=== PATIENT | male | born 1990 | race Caucasian/White ===

== ENCOUNTER 2024-02-01 05:15 | Emergency (ER) | payer MEDICAID ==
[~2024-02-01] VITALS: Ht 175.3 cm; Wt 74.0 kg
[~2024-02-01 05:15] MED LIST: TOPUD MT
[2024-02-01 05:20] VITALS: O2SAT 100
[2024-02-01] MEDS: LORAZEPAM 1MG TABLET PO ONE (05:50)
[2024-02-01] MEDS: SODIUM CHLORIDE 0.9% 1,000 ML IV ONE (05:54)
[2024-02-01 06:04] LABS: BASOPHILS % 0.5 % (0.0-2.0); EOSINOPHILS % 0.9 % (0.0-5.0); HEMATOCRIT. 51.1 % (42.0-52.0); HEMOGLOBIN. 17.4 g/dL (14.0-18.0); LYMPHOCYTES % 33.5 % (20.0-50.0); MEAN CORPUSCULAR HGB CONC 34.1 g/dL (31.0-37.0); MEAN CORPUSCULAR VOLUME 87.8 fL (80.0-94.0); MONOCYTES % 3.4 % (2.0-8.0); NEUTROPHILS % 61.7 % (40.0-76.0); PLATELET 358 x1000/uL (130-400); RED BLOOD CELL COUNT 5.82 mill/uL (4.7-6.1); RED CELL DISTRIBUTION WIDTH 14.1 % (11.6-14.6); WHITE BLOOD COUNT 6.6 x1000/uL (4.5-11.0)
[2024-02-01 06:21] LABS: CALCIUM 9.9 mg/dL (8.7-10.4); CHLORIDE 102 mEq/L (98-107); POTASSIUM 3.7 mEq/L (3.5-5.1); SODIUM 142 mEq/L (136-145)
[2024-02-01 06:22] LABS: CARBON DIOXIDE 27 mEq/L (21-32)
[2024-02-01 06:27] LABS: ETHANOL BLOOD 242 mg/dL (<10); GLUCOSE 132 mg/dL (70-105); UREA NITROGEN BLOOD 10 mg/dL (9-23)
[2024-02-01 08:23] VITALS: BP 105/65; PULSE 81; RESP 16; TEMP 36.83628; O2SAT 100
== END 2024-02-01 08:24 | disposition home or self-care (01) ==
LOC: ER 05:15
DX: F10.10 Alcohol abuse, uncomplicated (principal); E11.9 Type 2 diabetes mellitus without complications; Y90.8 Blood alcohol level of 240 mg/100 ml or more
CPT/HCPCS: 80048; 80320; 83690; 85025; 36415; 96360; 99283; J7030; G0480

== ENCOUNTER 2024-02-01 08:51 | Emergency (ER) | payer MEDICAID ==
[~2024-02-01] VITALS: Ht 162.6 cm; Wt 68.0 kg
[2024-02-01 09:12] VITALS: BP 123/90; PULSE 125; RESP 16; O2SAT 98
[2024-02-01 10:55] VITALS: TEMP 98.6
[2024-02-01] MEDS: ACETAMINOPHEN 325MG TABLET PO STA (10:55)
[2024-02-01] MEDS: LORAZEPAM 1MG TABLET PO ONE (11:00)
[2024-02-01 12:23] LABS: BASOPHILS % 0.4 % (0.0-2.0); EOSINOPHILS % 0.2 % (0.0-5.0); HEMATOCRIT. 45.3 % (42.0-52.0); HEMOGLOBIN. 15.4 g/dL (14.0-18.0); LYMPHOCYTES % 15.4 % (20.0-50.0); MEAN CORPUSCULAR HEMOGLOBIN 29.9 pg (28.0-32.0); MEAN CORPUSCULAR VOLUME 87.9 fL (80.0-94.0); MEAN PLATELET VOLUME 7.7 fl (7.4-10.4); MONOCYTES % 4.2 % (2.0-8.0); NEUTROPHILS % 79.8 % (40.0-76.0); PLATELET 337 x1000/uL (130-400); RED BLOOD CELL COUNT 5.15 mill/uL (4.7-6.1); RED CELL DISTRIBUTION WIDTH 13.9 % (11.6-14.6); WHITE BLOOD COUNT 8.8 x1000/uL (4.5-11.0)
[2024-02-01] MEDS: SODIUM CHLORIDE 0.9% 1,000 ML IV ONE (12:31)
[2024-02-01 12:33] LABS: CHLORIDE 104 mEq/L (98-107); POTASSIUM 3.8 mEq/L (3.5-5.1); SODIUM 141 mEq/L (136-145)
[2024-02-01 12:34] LABS: CARBON DIOXIDE 26 mEq/L (21-32)
[2024-02-01 12:35] LABS: CALCIUM 9.1 mg/dL (8.7-10.4)
[2024-02-01 12:39] LABS: CREATININE 0.9 mg/dL (0.6-1.3); GLUCOSE 116 mg/dL (70-105); UREA NITROGEN BLOOD 10 mg/dL (9-23)
[2024-02-01 12:40] LABS: ETHANOL BLOOD 113 mg/dL (<10)
[2024-02-01 12:41] LABS: TROPONIN I HIGH SENSITIVITY < 4 ng/L (3.0-53)
== END 2024-02-01 14:40 | disposition home or self-care (01) ==
LOC: ER 08:51
DX: F10.10 Alcohol abuse, uncomplicated (principal); F41.9 Anxiety disorder, unspecified; Y90.5 Blood alcohol level of 100-119 mg/100 ml
CPT/HCPCS: 80048; 80320; 85025; 84484; 36415; 93005; 96360; 99284; J7030; Z7610; G0480

== ENCOUNTER 2024-12-08 23:41 | Emergency (ER) | payer MEDICAID ==
[~2024-12-08] VITALS: Ht 162.6 cm; Wt 63.5 kg
[~2024-12-08 23:41] MED LIST changes: +CHLO25CA10 PO; +IBUP-2030 MT; +LORA-250 PO; +METF-414 PO; +PANT40TA51 PO
[2024-12-08 23:53] VITALS: O2SAT 98
[2024-12-09 00:15] LABS: BASOPHILS % 1.0 % (0.0-2.0); EOSINOPHILS % 0.1 % (0.0-5.0); HEMATOCRIT. 45.8 % (42.0-52.0); HEMOGLOBIN. 15.3 g/dL (14.0-18.0); LYMPHOCYTES % 25.0 % (20.0-50.0); MEAN PLATELET VOLUME 7.4 fl (7.4-10.4); MONOCYTES % 5.2 % (2.0-8.0); NEUTROPHILS % 68.7 % (40.0-76.0); PLATELET 265 x1000/uL (130-400); RED BLOOD CELL COUNT 5.08 mill/uL (4.7-6.1); RED CELL DISTRIBUTION WIDTH 15.3 % (11.6-14.6)
[2024-12-09 00:28] LABS: CREATININE 1.1 mg/dL (0.6-1.3); UREA NITROGEN BLOOD 8 mg/dL (9-23)
[2024-12-09 00:29] LABS: ASPARTATE AMINOTRANSFERASE 43 IU/L (<34)
[2024-12-09 00:30] LABS: BILIRUBIN DIRECT 0.1 mg/dL (<=3.0); BILIRUBIN TOTAL 0.4 mg/dL (0.1-1.0); PROTEIN TOTAL 8.0 g/dL (6.0-8.3)
[2024-12-09 00:41] LABS: ETHANOL BLOOD 409 mg/dL (<10)
[2024-12-09] MEDS: ONDANSETRON HCL 4MG/2ML INJ IV ONE (00:54)
[2024-12-09] MEDS: KETOROLAC 15MG/ML VIAL IV ONE (01:02)
[2024-12-09] MEDS: SODIUM CHLORIDE 0.9% 1,000 ML IV ONE (01:03)
[2024-12-09 01:53] LABS: INR 0.9
[2024-12-09] MEDS ORDERED: IOHEXOL-300 100 ML BOTTLE ONE (02:09)
[2024-12-09] MEDS ORDERED: SODIUM CHLORIDE 0.9% 1,000 ML IV ONE (02:15)
[2024-12-09] MEDS: HYDROXYZINE 25MG TABLET PO NR (02:16)
[2024-12-09] MEDS ORDERED: MAG355OR21 MT (02:31)
[2024-12-09] MEDS ORDERED: ONDA4TAB50 MT (02:31)
[2024-12-09 04:33] VITALS: BP 125/79; PULSE 80; RESP 14; TEMP 37.2; O2SAT 98
[2024-12-11] MEDS ORDERED: METF-414 PO (17:26)
== END 2024-12-09 04:25 | disposition home or self-care (01) ==
LOC: ER 23:41 → CMPBEDREQ 12-09 05:56
DX: K85.90 Acute pancreatitis without necrosis or infection, unspecified (principal); F10.20 Alcohol dependence, uncomplicated; E11.9 Type 2 diabetes mellitus without complications; Z87.19 Personal history of other diseases of the digestive system; Z79.84 Long term (current) use of oral hypoglycemic drugs; Z79.899 Other long term (current) drug therapy; Y90.9 Presence of alcohol in blood, level not specified
CPT/HCPCS: 80076; 80048; 80320; 83690; 85025; 36415; 71045; 99285; 85610; 85730; 74177; 96361; 96374; 96375; Q9967; J1885; J2405; J7030; Z7610 ×3; A4606; G0480